=== PATIENT | female | born 1960 | race African-American/Black ===

== ENCOUNTER 2017-08-31 20:52 | Emergency (ER) | payer MEDICAID ==
[~2017-08-31] VITALS: Ht 167.6 cm; Wt 77.0 kg
[~2017-08-31 20:52] MED LIST: AMLO2.5T45 PO; Docusate Sodium PO; Folic Acid PO; HYDR12.529 PO; IBUP-2029 PO; MY80 PO; Multivitamins,Ther W-Minerals PO; SIMV10TA6 PO
[2017-08-31 21:28] VITALS: BP 131/94
== END 2017-08-31 22:30 | disposition home or self-care (01) ==
LOC: ER 22:21
DX: S40.022A Contusion of left upper arm, initial encounter (principal); E78.00 Pure hypercholesterolemia, unspecified; F17.200 Nicotine dependence, unspecified, uncomplicated; I10 Essential (primary) hypertension; Y08.89XA Assault by other specified means, initial encounter; Y93.89 Activity, other specified; Y92.89 Other specified places as the place of occurrence of the external cause; Y99.8 Other external cause status
CPT/HCPCS: 99281

== ENCOUNTER 2017-12-11 18:04 | Emergency (ER) | payer MEDICAID ==
[~2017-12-11] VITALS: Ht 170.2 cm; Wt 73.0 kg
[2017-12-12 01:00] VITALS: BP 2/99
== END 2017-12-12 01:00 | disposition home or self-care (01) ==
LOC: ER 18:04
DX: H66.91 Otitis media, unspecified, right ear (principal); H61.22 Impacted cerumen, left ear; R05 Cough; F17.200 Nicotine dependence, unspecified, uncomplicated; E78.00 Pure hypercholesterolemia, unspecified; I10 Essential (primary) hypertension
CPT/HCPCS: 99283

== ENCOUNTER 2020-01-12 17:27 | Emergency (ER) | payer MEDICAID ==
[~2020-01-12] VITALS: Ht 165.1 cm; Wt 75.0 kg
[~2020-01-12 17:27] MED LIST changes: -SIMV10TA6 PO; +SIMV10TA97 PO
[2020-01-12 17:32] VITALS: BP 146/86
== END 2020-01-12 23:48 | disposition left against medical advice (07) ==
LOC: ER 17:27
DX: Z53.21 Procedure and treatment not carried out due to patient leaving prior to being seen by health care provider (principal)

== ENCOUNTER 2020-01-13 16:58 | Emergency (ER) | payer MEDICAID ==
[~2020-01-13] VITALS: Ht 167.6 cm; Wt 80.0 kg
[2020-01-13] MEDS ORDERED: IBUPROFEN 600MG TABLET PO ONE (17:45)
[2020-01-13 18:55] VITALS: BP 135/99
== END 2020-01-13 19:13 | disposition home or self-care (01) ==
LOC: ER 16:58
DX: S82.65XA Nondisplaced fracture of lateral malleolus of left fibula, initial encounter for closed fracture (principal); E78.00 Pure hypercholesterolemia, unspecified; I10 Essential (primary) hypertension; Z98.890 Other specified postprocedural states; Z79.899 Other long term (current) drug therapy; W01.0XXA Fall on same level from slipping, tripping and stumbling without subsequent striking against object, initial encounter; Y93.89 Activity, other specified; Y92.89 Other specified places as the place of occurrence of the external cause; Y99.8 Other external cause status
CPT/HCPCS: 29515; 73590; 73610; 99284

== ENCOUNTER 2020-02-02 21:51 | Emergency (ER) | payer MEDICAID ==
[~2020-02-02] VITALS: Ht 172.7 cm; Wt 80.0 kg
[2020-02-02 23:08] VITALS: BP 145/95
== END 2020-02-02 23:21 | disposition home or self-care (01) ==
LOC: ER 21:51
DX: S82.892A Other fracture of left lower leg, initial encounter for closed fracture (principal); X58.XXXA Exposure to other specified factors, initial encounter; Y93.89 Activity, other specified; Y92.89 Other specified places as the place of occurrence of the external cause; I10 Essential (primary) hypertension; E78.00 Pure hypercholesterolemia, unspecified; Z79.899 Other long term (current) drug therapy
CPT/HCPCS: 29515; 99283

== ENCOUNTER 2021-09-01 09:31 | Emergency (ER) | payer MEDICAID ==
[~2021-09-01] VITALS: Ht 170.2 cm; Wt 73.0 kg
[~2021-09-01 09:31] MED LIST changes: -MY80 PO; +SIME80TA16 PO
[2021-09-01] MEDS ORDERED: HYDROCODONE/ACETAMINOPHEN 5/325MG TABLET PO ONE (10:15)
[2021-09-01] MEDS ORDERED: KETOROLAC 15MG/ML VIAL IV ONE (10:15)
[2021-09-01] MEDS ORDERED: KETOROLAC 30MG/ML VIAL IV SCH (10:30)
[2021-09-01 10:41] LABS: HEMOGLOBIN. 10.6 g/dL (12.0-16.0); MEAN CORPUSCULAR HEMOGLOBIN 31.5 pg (28.0-32.0); MEAN CORPUSCULAR VOLUME 91.9 fL (81.0-99.0); MEAN PLATELET VOLUME 8.2 fl (7.4-10.4); PLATELET 247 x1000/uL (130-400); RED BLOOD CELL COUNT 3.37 mill/uL (4.2-5.4)
[2021-09-01 10:42] LABS: CHLORIDE 100 mEq/L (98-107)
[2021-09-01 11:24] LABS: NUCLEATED RED BLOOD CELLS 1 /100 WBC; PLATELET ESTIMATE NORMAL
[2021-09-01] MEDS ORDERED: IOHEXOL-350 100 ML BOTTLE ONE (11:47)
[2021-09-01] MEDS ORDERED: HYDR-4001 MT (13:13)
[2021-09-01 13:14] VITALS: BP 160/90
== END 2021-09-01 13:24 | disposition home or self-care (01) ==
LOC: ER 09:31
DX: S22.43XA Multiple fractures of ribs, bilateral, initial encounter for closed fracture (principal); S20.01XA Contusion of right breast, initial encounter; V49.59XA Passenger injured in collision with other motor vehicles in traffic accident, initial encounter; Y93.89 Activity, other specified; Y92.488 Other paved roadways as the place of occurrence of the external cause
CPT/HCPCS: 36415; 71045; 71275; 80053; 83880; 84484; 85025; 93005; 96374; 99285; J1885; Q9967

== ENCOUNTER 2021-09-03 19:50 | Emergency (ER) | payer MEDICAID ==
[~2021-09-03] VITALS: Ht 170.2 cm; Wt 73.0 kg
[~2021-09-03 19:50] MED LIST changes: +HYDR-4001 MT
[2021-09-03] MEDS ORDERED: ACET-2708 MT (23:09)
[2021-09-03] MEDS ORDERED: IBUP-2029 MT (23:10)
[2021-09-04 00:04] VITALS: BP 121/77
== END 2021-09-03 23:50 | disposition home or self-care (01) ==
LOC: ER 19:50
DX: R07.89 Other chest pain (principal); S20.00XA Contusion of breast, unspecified breast, initial encounter; V49.9XXA Car occupant (driver) (passenger) injured in unspecified traffic accident, initial encounter; Y93.9 Activity, unspecified; Y92.410 Unspecified street and highway as the place of occurrence of the external cause
CPT/HCPCS: 93005; 99283

== ENCOUNTER 2021-09-14 17:59 | Emergency (ER) | payer MEDICAID ==
[~2021-09-14] VITALS: Ht 172.7 cm; Wt 73.0 kg
[~2021-09-14 17:59] MED LIST changes: +ACET-2708 MT; +IBUP-2029 MT
[2021-09-15] MEDS ORDERED: MORPHINE SULFATE 4 MG/ML CPJ (NOT FOR IM USE) IV STA (01:06)
[2021-09-15] MEDS ORDERED: ONDANSETRON HCL 4MG/2ML INJ IV STA (01:06)
[2021-09-15] MEDS ORDERED: SODIUM CHLORIDE 0.9% 1,000 ML IV ONE (01:15)
[2021-09-15 02:18] LABS: BASOPHILS % 0.5 % (0.0-2.0); EOSINOPHILS % 3.7 % (0.0-5.0); HEMATOCRIT. 32.7 % (36.0-48.0); HEMOGLOBIN. 11.3 g/dL (12.0-16.0); MEAN CORPUSCULAR HEMOGLOBIN 32.3 pg (28.0-32.0); MEAN CORPUSCULAR VOLUME 93.7 fL (81.0-99.0); MEAN PLATELET VOLUME 7.4 fl (7.4-10.4); NEUTROPHILS % 60.8 % (40.0-76.0); PLATELET 213 x1000/uL (130-400); RED BLOOD CELL COUNT 3.49 mill/uL (4.2-5.4); RED CELL DISTRIBUTION WIDTH 13.4 % (11.6-14.6)
[2021-09-15 02:24] LABS: CHLORIDE 112 mEq/L (98-107)
[2021-09-15] MEDS ORDERED: BACL-141 MT (05:03)
[2021-09-15] MEDS ORDERED: IBUP-2029 MT (05:03)
[2021-09-15 05:40] VITALS: BP 128/88
[2021-09-15] MEDS ORDERED: IOHEXOL-300 100 ML BOTTLE ONE (05:44)
== END 2021-09-15 05:47 | disposition home or self-care (01) ==
LOC: ER 17:59
DX: S22.20XA Unspecified fracture of sternum, initial encounter for closed fracture (principal); S22.32XA Fracture of one rib, left side, initial encounter for closed fracture; S22.31XA Fracture of one rib, right side, initial encounter for closed fracture; I10 Essential (primary) hypertension; Z79.899 Other long term (current) drug therapy; V49.88XA Car occupant (driver) (passenger) injured in other specified transport accidents, initial encounter; Y93.89 Activity, other specified; Y92.89 Other specified places as the place of occurrence of the external cause; Y99.8 Other external cause status
CPT/HCPCS: 36415; 71045; 71260; 80053; 84484; 85025; 93005; 96361; 96374; 96375; 99285; J2270; J2405; J7030; Q9967